=== PATIENT | female | born 1985 ===

== ENCOUNTER 2020-08-15 08:58 | Emergency (ER) | payer SELFPAY ==
[2020-08-15 09:41] VITALS: BP 115/81
--- NOTE | 2020-08-15 10:02 | Emergency Department Report ---
ED General Adult HPI - General Chief complaint: Medical Clearance Stated complaint: POSS STD EAR PAIN Time Seen by Provider: 08/15/20 09:51 Source: patient Mode of arrival: Ambulatory Limitations: No Limitations - History of Present Illness Initial comments: 35-year-old female is present to the ER today with complaints of right ear pain, vaginal discharge and exposure to chlamydia. Patient states that about a month ago she started with yellow-brown vaginal discharge, mild decreased urine output, and intermittent mild suprapubic abdominal pain. Patient states that about a month and a half ago she was told by a new sexual partner whom she had unprotected sexual intercourse with that he was positive for chlamydia. Patient states that due to lack of transportation she was unable to get to a clinic or hospital to get treated. She states that she bought a car last week and that is how she was able to get here today. Is currently on her menstrual cycle. She does not take any control. Patient states that her right ear pain started last week. She reports associated ringing and rhinorrhea and swollen right-sided neck lymph nodes. She denies any fever chills or any other associated symptoms at this time. Complaint: Right ear pain, vaginal discharge, exposure to chlamydia - Related Data Previous Rx's Medication Instructions Recorded Last Taken Type Azithromycin [Zithromax Z-MATY] 250 mg PO DAILY #1 pack 08/15/20 Unknown Rx Doxycycline Hyclate 100 mg PO Q12HR #14 tablet. 08/15/20 Unknown Rx Ondansetron [Zofran Odt] 4 mg PO Q8HR PRN #15 tab.bernadine 08/15/20 Unknown Rx metroNIDAZOLE [Flagyl] 500 mg PO Q12HR #14 tab 08/15/20 Unknown Rx ED Review of Systems ROS: Stated complaint: POSS STD EAR PAIN Other details as noted in HPI Comment: All other systems reviewed and negative Constitutional: denies: chills, diaphoresis, fever, malaise, weakness Eyes: denies: eye pain, eye discharge, vision change ENT: ear pain. denies: throat pain, dental pain, hearing loss, epistaxis, congestion Respiratory: denies: cough, orthopnea, shortness of breath, SOB with exertion, SOB at rest, wheezing Cardiovascular: denies: chest pain, palpitations, dyspnea on exertion, orthopnea, edema, syncope, paroxysmal nocturnal dyspnea Gastrointestinal: abdominal pain. denies: nausea, vomiting, diarrhea, constipation, hematemesis, melena, hematochezia Genitourinary: discharge, other (Mild decreased urinary output). denies: dysuria, frequency, hematuria, abnormal menses, dyspareunia Musculoskeletal: denies: back pain, joint swelling, arthralgia Skin: denies: rash, lesions, change in color, change in hair/nails, pruritus Neurological: denies: headache, weakness, numbness, paresthesias, confusion, abnormal gait, vertigo Psychiatric: denies: anxiety, depression, auditory hallucinations, visual hallucinations, homicidal thoughts, suicidal thoughts Hematological/Lymphatic: denies: easy bleeding, easy bruising ED Past Medical Hx - Past Medical History Previous Medical History?: No - Surgical History Past Surgical History?: No - Social History Smoking Status: Current Every Day Smoker Substance Use Type: Alcohol - Medications Home Medications: Home Medications Medication Instructions Recorded Confirmed Last Taken Type Azithromycin [Zithromax Z-MATY] 250 mg PO DAILY #1 pack 08/15/20 Unknown Rx Doxycycline Hyclate 100 mg PO Q12HR #14 tablet.dr 08/15/20 Unknown Rx Ondansetron [Zofran Odt] 4 mg PO Q8HR PRN #15 tab.rapdis 08/15/20 Unknown Rx metroNIDAZOLE [Flagyl] 500 mg PO Q12HR #14 tab 08/15/20 Unknown Rx ED Physical Exam - General Limitations: No Limitations General appearance: alert, in no apparent distress - Head Head exam: Present: atraumatic, normocephalic, normal inspection - Eye Eye exam: Present: normal appearance, PERRL, EOMI Pupils: Present: normal accommodation - ENT ENT exam: Present: normal exam, mucous membranes moist - Expanded ENT Exam Expanded TM/Canal exam: Cerumen Impaction: Right TM - Neck Neck exam: Present: normal inspection, full ROM, lymphadenopathy (Mild right anterior cervical adenopathy) - Respiratory Respiratory exam: Present: normal lung sounds bilaterally. Absent: respiratory distress - Cardiovascular Cardiovascular Exam: Present: regular rate, normal rhythm, normal heart sounds - GI/Abdominal GI/Abdominal exam: Present: soft. Absent: distended, tenderness, guarding - External exam: Present: normal external exam Speculum exam: Present: vaginal discharge (small amt of blood clear discharge ). Absent: cervical discharge, vaginal bleeding, foreign body, tissue, laceration Bi-manual exam: Absent: cervical motion tendernes, adnexal tenderness, adnexal mass, uterine enlargement, uterine tenderness - Extremities Exam Extremities exam: Present: normal inspection - Back Exam Back exam: Present: normal inspection - Neurological Exam Neurological exam: Present: alert, oriented X3, CN II-XII intact, normal gait - Psychiatric Psychiatric exam: Present: normal affect, normal mood - Skin Skin exam: Present: intact ED Course Vital Signs 08/15/20 09:38 Temperature 98.5 F Pulse Rate 85 Respiratory 16 Rate Blood Pressure 115/81 [Right] O2 Sat by Pulse 100 Oximetry Critical care attestation.: If time is entered above; I have spent that time in minutes in the direct care of this critically ill patient, excluding procedure time. ED Disposition Clinical Impression: Trichomonas infection, Exposure to chlamydia, Impacted cerumen of right ear Disposition: DC-01 TO HOME OR SELFCARE Is pt being admited?: No Does the pt Need Aspirin: No Condition: Stable Instructions: Earwax Buildup, Adult, Trichomoniasis, Chlamydia, Female Additional Instructions: Take the zpak (for possible ear infection), doxycycline (for chlamydia treatment), and the Flagyl (for trichomonas and BV treatment) as prescribed. Do not drink any alcohol while taking the Flagyl. Make sure you take the doxycycl ine and the Flagyl food. You will get a prescription for Zofran to take as needed for nausea. You can take Tylenol and/or ibuprofen for pain as needed. You can use Debrox, or or apply small amount of warm peroxide in the right ear to help with earwax. You can follow-up with the search and rescue officer if your ear symptoms persist. Also recommend follow-up with [facility] listed on your discharge instructions. Return to the ER if your symptoms changes or worsens in any way. Prescriptions: Doxycycline Hyclate 100 mg PO Q12HR #14 tablet. metroNIDAZOLE [Flagyl] 500 mg PO Q12HR #14 tab Azithromycin [Zithromax Z-MATY] 250 mg PO DAILY #1 pack Ondansetron [Zofran Odt] 4 mg PO Q8HR PRN #15 tab.rapdis PRN Reason: Nausea Referrals: [facility] [Provider Group] - 3-5 Days [facility] [Provider Group] - 3-5 Days KINDRA LEWIS MD [Staff Physician] - 3-5 Days Forms: Work/School Release Form(ED) Time of Disposition: 11:38
[2020-08-15] MEDS ORDERED: LIDOCAINE-MPF (1%) 10 MG/1 ML VIAL 5 ML INFILTRATI ONE (10:55)
[2020-08-15 11:03] LABS: HCG Qualitative,Urine Negative (Negative)
[2020-08-15 11:06] LABS: Bilirubin,Urine NEG (Negative); Blood,Urine LG (Negative); Color,Urine Yellow (Yellow); Mucus,Urine 1+ /HPF; Urobilinogen,Urine < 2.0 mg/dL (<2.0)
== END 2020-08-15 11:43 | disposition home or self-care (01) ==
LOC: ED 08:58
DX: A59.8 Trichomoniasis of other sites (principal); A74.89 Other chlamydial diseases; H61.21 Impacted cerumen, right ear; F17.200 Nicotine dependence, unspecified, uncomplicated; Z79.899 Other long term (current) drug therapy
CPT/HCPCS: 81001; 81025; 87086; 87210; 87591; 96372; 99283; J0696